=== PATIENT | male | born 1995 ===

== ENCOUNTER 2017-09-14 07:47 | Emergency (ER) | payer SELFPAY ==
[2017-09-14 08:09] VITALS: BMI 22.0
--- NOTE | 2017-09-14 08:13 | ED PDOC ---
HPI: Chest Pain Time Seen by Provider: 09/14/17 07:49 Chief Complaint (Provider): Chest Pain History Per: Patient, Other (Police) History/Exam Limitations: no limitations Onset/Duration Of Symptoms: Hrs (x3) Current Symptoms Are (Timing): Still Present Additional Complaint(s): David is a 22 y/o male with no past medical history who was brought to the ED by police for evaluation of non-radiating left-sided chest pain. Patient reports some associated difficulty breathing, which began when he was placed in his custodial cell which was hot and dark per police liaison. Of note, patient was arrested around 4AM. He admits to alcohol use, denies drug use. He states having similar pain in the past for years. No nausea, vomiting, diarrhea, leg pain, arm pain, weakness, numbness, tingling, headache, or dizziness. Of note, patient is in police custody. PMD: None Past Medical History Reviewed: Historical Data, Nursing Documentation, Vital Signs Vital Signs: Last Vital Signs Temp 99 F 09/14/17 08:05 Pulse 96 H 09/14/17 08:15 Resp 17 09/14/17 08:05 BP 127/83 09/14/17 08:05 Pulse Ox 97 09/14/17 08:05 - Medical History PMH: No Chronic Diseases - Family History Family History: States: Unknown Family Hx - Social History Current smoker - smoking cessation education provided: No Alcohol: Social Drugs: Cannabis - Allergies Allergies/Adverse Reactions: Allergies Allergy/AdvReac Type Severity Reaction Status Date / Time ketchup Allergy RASH Uncoded 09/14/17 08:14 Review of Systems ROS Statement: Except As Marked, All Systems Reviewed And Found Negative Constitutional: Negative for: Fever Eyes: Negative for: Vision Change Cardiovascular: Positive for: Chest Pain Respiratory: Positive for: Shortness of Breath. Negative for: Cough Gastrointestinal: Negative for: Nausea, Vomiting, Diarrhea Musculoskeletal: Negative for: Arm Pain, Leg Pain Neurological: Negative for: Weakness, Numbness, Headache, Dizziness Physical Exam - Reviewed Nursing Documentation Reviewed: Yes Vital Signs Reviewed: Yes - Physical Exam Appears: Positive for: Well, Non-toxic, No Acute Distress Head Exam: Positive for: ATRAUMATIC, NORMAL INSPECTION, NORMOCEPHALIC Skin: Positive for: Normal Color, Warm, Dry Eye Exam: Positive for: EOMI, Normal appearance, PERRL Neck: Positive for: Normal, Painless ROM, Supple Cardiovascular/Chest: Positive for: Regular Rate, Rhythm, Chest Non Tender. Negative for: Murmur Respiratory: Positive for: Normal Breath Sounds. Negative for: Accessory Muscle Use, Respiratory Distress Gastrointestinal/Abdominal: Positive for: Normal Exam, Soft. Negative for: Tenderness Back: Positive for: Normal Inspection. Negative for: Vertebral Tenderness Extremity: Positive for: Normal ROM. Negative for: Pedal Edema, Calf Tenderness , Deformity Neurologic/Psych: Positive for: Alert, Oriented. Negative for: Motor/Sensory Deficits - ECG ECG: Positive for: Interpreted By Me, Viewed By Me ECG Rhythm: Positive for: Normal QRS, Normal ST Segment, Sinus Rhythm - Progress ED Course And Treament: 813: Stable. AAOx3. Pain free. Tolerated PO. FU with pcp. Medical Decision Making Medical Decision Making: Time: 8:10 Initial Impression: Chest Pain Initial Plan: --EKG --Pending medical clearance Scribe Attestation: Documented by Jane Alvarez, acting as a scribe for Pb Winn MD Provider Scribe Attestation: All medical record entries made by the Scribe were at my direction and personally dictated by me. I have reviewed the chart and agree that the record accurately reflects my personal performance of the history, physical exam, medical decision making, and the department course for this patient. I have also personally directed, reviewed, and agree with the discharge instructions and disposition. Disposition - Clinical Impression Clinical Impression: Chest pain - Patient ED Disposition Is Patient to be Admitted: No Counseled Patient/Family Regarding: Diagnosis, Need For Followup - Disposition Referrals: [facility] [Outside] - 09/17/17 Disposition: Routine/Home Disposition Time: 08:14 Condition: STABLE Additional Instructions: Return if not better in 3 days. You are medically cleared for incarceration. Instructions: Chest Pain (ED) Forms: [facility] ([employer]) Print Language: [place]
--- NOTE | 2017-09-14 08:23 | CARD ---
APPROVED REPORT EKG Measurement Heart [id number] <Conclusion> Normal sinus rhythm Normal ECG
[2017-09-14 08:25] VITALS: BP 127/83; PULSE 96; RESP 17; TEMP 99; O2SAT 97
== END 2017-09-14 08:25 ==
LOC: H.ER 07:47
DX: Z02.89 Encounter for other administrative examinations (principal); R07.89 Other chest pain